=== PATIENT | female | born 1980 | race Caucasian/White ===

== ENCOUNTER 2019-09-22 22:32 | Emergency (ER) | payer SELFPAY ==
[~2019-09-22] VITALS: Ht 183.5 cm; Wt 161.5 kg
[2019-09-22 22:36] VITALS: BP 138/82
--- NOTE | 2019-09-22 22:38 | NUR ---
PT RAHUL ALS. TAKEN TO BED 9
--- NOTE | 2019-09-22 23:07 | NUR ---
PT ALERT AND AWAKE, BREATHING EVEN AND UNLABORED. NO DISTRESS NOTED
--- NOTE | 2019-09-22 23:10 | NUR ---
XRAY AT BEDSIDE
--- NOTE | 2019-09-22 23:35 | NUR ---
39 YEAR OLD FEMALE COMPLAIS OF COUGH AND BODY ACHES X 3 DAYS. PT UNSURE OF COVID CONTACT. PT AOX4, BREATHING EVEN AND UNLABORED, SKIN WARM AND DRY. BED IN LOWEST POSITION, LOCKED, BED RAIL UPX1. COVID PRECAUTIONS STARTED PMH - DENIES ALLERGIES - NKA
[2019-09-22] MEDS: KETOROLAC 30 MG/ML VIAL IM ONE (23:42)
[2019-09-22] MEDS: DOXYCYCLINE 100 MG CAP PO SCH (23:43)
[2019-09-23 00:08] LABS: BASOPHILS # (AUTO) 0.2 K/uL (0.00-0.22); BASOPHILS % (AUTO) 2.2 % (0.0-2.0); EOSINOPHILS # (AUTO) 0.1 K/uL (0-0.4); EOSINOPHILS % (AUTO) 0.9 % (0.0-4.0); HEMATOCRIT 42.2 % (36-48); HEMOGLOBIN 13.8 g/dL (12.0-16.0); LYMPHOCYTES # (AUTO) 2.1 K/uL (2.5-16.5); LYMPHOCYTES % (AUTO) 30.8 % (20.5-51.1); MEAN CORPUSCULAR HEMOGLOBIN 28 pg (27-31); MEAN CORPUSCULAR HGB CONC 33 g/dL (33-37); MEAN CORPUSCULAR VOLUME 85.8 fL (80-94); MONOCYTES # (AUTO) 0.4 K/uL (0.8-1.0); MONOCYTES % (AUTO) 6.4 % (1.7-9.3); NEUTROPHILS # (AUTO) 4.1 K/uL (1.8-7.7); NEUTROPHILS % (AUTO) 59.7 % (42.2-75.2); PLATELET COUNT (AUTO) 245 K/uL (140-450); RED BLOOD CELL COUNT(AUTO) 4.91 MIL/uL (4.20-5.40); RED CELL DISTRIBUTION WIDTH 18.1 % (11.6-13.7); WHITE BLOOD COUNT (AUTO) 6.9 K/uL (4.8-10.8)
--- NOTE | 2019-09-23 00:27 | NUR ---
PT RESTING ON BED. NO PAIN NOTED.
[2019-09-23 00:45] VITALS: BP 101/55
--- NOTE | 2019-09-23 00:45 | NUR ---
Patient discharged with v/s stable. Written and verbal after care instructions about pneumonia in adults given and explained. Patient alert, oriented and verbalized understanding of instructions. Ambulatory with steady gait. All questions addressed prior to discharge. ID band removed. Patient advised to follow up with PMD. Rx of doxycycline given. Patient educated on indication of medication including possible reaction and side effects. Opportunity to ask questions provided and answered.
== END 2019-09-23 00:45 | disposition home or self-care (01) ==
LOC: MED 22:32
DX: J16.8 Pneumonia due to other specified infectious organisms (principal)
CPT/HCPCS: 36415; 71045; 85025; 96372; 99284; J1885; Q0092